=== PATIENT | female | born 1975 | race Caucasian/White ===

== ENCOUNTER 2021-12-26 10:48 | Inpatient (IN) | payer BC ==
[~2021-12-26] VITALS: Ht 167.6 cm; Wt 61.2 kg
[2021-12-26 11:45] LABS: HEMOGLOBIN 12.8 gm/dl (12.3-15.3); RED BLOOD COUNT 4.63 M/UL (4.00-5.10); WHITE BLOOD COUNT 6.3 K/UL (4.5-11.0)
[2021-12-26 12:14] LABS: BUN/CREATININE RATIO 14 (0-10)
[2021-12-26] MEDS ORDERED: IBUPROFEN400 MG PO (15:34)
--- NOTE | 2021-12-26 18:21 | NUR ---
STEPH NOTIFIED OF PT HAVING SENSATION IN THROAT OF FOOD WCTM
[2021-12-27 02:47] LABS: WHITE BLOOD COUNT 5.2 K/UL (4.5-11.0)
[2021-12-27 03:21] LABS: BUN/CREATININE RATIO 14 (0-10)
[2021-12-28 03:37] LABS: HEMOGLOBIN 11.2 gm/dl (12.3-15.3); RED BLOOD COUNT 4.09 M/UL (4.00-5.10); WHITE BLOOD COUNT 5.3 K/UL (4.5-11.0)
[2021-12-28 04:11] LABS: BUN/CREATININE RATIO 20 (0-10)
[2021-12-29 03:16] LABS: HEMOGLOBIN 10.9 gm/dl (12.3-15.3); RED BLOOD COUNT 3.96 M/UL (4.00-5.10); WHITE BLOOD COUNT 4.5 K/UL (4.5-11.0)
[2021-12-29 03:41] LABS: BUN/CREATININE RATIO 20 (0-10)
--- NOTE | 2021-12-29 05:00 | NUR ---
Notified Dr. Choe and told him that straight cathing the patient was unsuccessful, that only 150-200mL of urine was drained from the bladder. Bladder scanner showed 900mL of urine and patient stated that she had no urge to void. I told him that two different RNs attempted to cath patient while I was in the room and they both got urine, but only a small amount. I expressed my concern that her bladder may be obstructed due to her pancreatic mass because she was voiding fine at the beginning of the shift. Dr. Choe stated "anchor a Ku cath" but I told him that the issue wasn't the catheter kit we were using because we were getting urine, but we were unable to drain her bladder completely. I also expressed to Dr. Choe that we instructed the patient to get up and try to void on her own, but she only voided 50mL. Dr. Choe stated "we will let day shift deal with it."
--- NOTE | 2021-12-29 05:39 | NUR ---
Turned patient's IV fluids off due to her not being able to void.
[2021-12-29 10:12] LABS: CANCER ANTIGEN (CA) 125 96.9 U/mL (0.0-38.1); CEA 0.5 ng/mL (0.0-4.7)
[2021-12-30] MEDS ORDERED: PHENERGAN 25 MG25 M1 PO (12:04)
[2021-12-30] MEDS ORDERED: MIRALAX17 GM PO (12:04)
[2021-12-30] MEDS ORDERED: HYDROCODON-ACE1 EAC6 PO (12:04)
[2021-12-30] MEDS ORDERED: ZOFRAN ODT 4 MG4 MG SL (12:04)
[2021-12-30] MEDS ORDERED: PROTONIX 40 MG40 M1 PO (12:04)
[2021-12-30] MEDS ORDERED: SENOKOT-S TABL1 EACH PO (12:04)
[2021-12-30] MEDS ORDERED: THERAGRAN M TAB1 EA PO (12:04)
== END 2021-12-30 17:50 | disposition home or self-care (01) | DRG 840 ==
LOC: ER1 10:48 → CDU 14:35 → M/S 14:35
PROVIDERS: Internal Medicine Infectious Disease; Physician Assistant; Registered Nurse; ADMIT Internal Medicine
PROC: 0WBH3ZX Excision of Retroperitoneum, Percutaneous Approach, Diagnostic (ICD-10-PCS; principal; 2021-12-27)
DX: C85.80 Other specified types of non-Hodgkin lymphoma, unspecified site (principal); K85.90 Acute pancreatitis without necrosis or infection, unspecified; R63.4 Abnormal weight loss; M54.9 Dorsalgia, unspecified; R14.0 Abdominal distension (gaseous); K59.00 Constipation, unspecified; K21.00 Gastro-esophageal reflux disease with esophagitis, without bleeding; E87.6 Hypokalemia; Z79.899 Other long term (current) drug therapy; Z98.890 Other specified postprocedural states; Z88.0 Allergy status to penicillin; Z68.21 Body mass index [BMI] 21.0-21.9, adult
CPT/HCPCS: 36415; 76942; 80053; 81001; 82378; 83690; 83735; 84703; 85025; 86304; 96374; 99285; C9113; J1885; J2270; J2405; J2550; J3480; J7030; Q9967; U0002

== ENCOUNTER 2022-01-01 15:12 | Emergency (ER) | payer BC ==
[~2022-01-01 15:12] MED LIST: HYDROCODON-ACE1 EAC6 PO; IBUPROFEN400 MG PO; MIRALAX17 GM PO; PHENERGAN 25 MG25 M1 PO; PROTONIX 40 MG40 M1 PO; SENOKOT-S TABL1 EACH PO; THERAGRAN M TAB1 EA PO; ZOFRAN ODT 4 MG4 MG SL
[2022-01-01 18:34] LABS: BUN/CREATININE RATIO 19 (0-10)
[2022-01-01 19:51] LABS: HEMOGLOBIN 12.5 gm/dl (12.3-15.3); RED BLOOD COUNT 4.57 M/UL (4.00-5.10); WHITE BLOOD COUNT 4.9 K/UL (4.5-11.0)
== END 2022-01-02 00:35 | disposition short-term general hospital (02) ==
LOC: ER1 15:12
PROVIDERS: Physician Assistant
DX: R19.00 Intra-abdominal and pelvic swelling, mass and lump, unspecified site (principal); K56.609 Unspecified intestinal obstruction, unspecified as to partial versus complete obstruction; I82.890 Acute embolism and thrombosis of other specified veins; K55.059 Acute (reversible) ischemia of intestine, part and extent unspecified; Z88.0 Allergy status to penicillin; Z85.72 Personal history of non-Hodgkin lymphomas
CPT/HCPCS: 80053; 81001; 83605; 83690; 85025; 93005; 96374; 96375; 99285; J2270; J2405; Q9967

== ENCOUNTER → 2022-01-21 | Outpatient (CLI) | payer BC ==
[2022-01-21 08:11] LABS: HEMOGLOBIN 9.3 gm/dl (12.3-15.3); RED BLOOD COUNT 3.49 M/UL (4.00-5.10); WHITE BLOOD COUNT 1.7 K/UL (4.5-11.0)
[2022-01-21 08:40] LABS: BUN/CREATININE RATIO 8 (0-10)
== END ==
LOC: OPSV 07:00
PROVIDERS: Internal Medicine
DX: C83.30 Diffuse large B-cell lymphoma, unspecified site (principal)
CPT/HCPCS: 80053; 85025

== ENCOUNTER → 2022-01-24 | Outpatient (CLI) | payer BC | LOC: MRI 09:30 | DX: C85.10 Unspecified B-cell lymphoma, unspecified site (principal) | CPT/HCPCS: 70553; A9577 ==

== ENCOUNTER → 2022-01-25 | Outpatient (CLI) | payer BC ==
[2022-01-25 09:25] LABS: BUN/CREATININE RATIO 8 (0-10)
[2022-01-25 09:37] LABS: RED BLOOD COUNT 3.75 M/UL (4.00-5.10); WHITE BLOOD COUNT 6.6 K/UL (4.5-11.0)
== END ==
LOC: OPSV 07:00
PROVIDERS: Internal Medicine
DX: C83.30 Diffuse large B-cell lymphoma, unspecified site (principal)
CPT/HCPCS: 80053; 85025

== ENCOUNTER 2022-01-30 11:34 | Emergency (ER) | payer BC ==
[2022-01-30 13:32] LABS: RED BLOOD COUNT 3.42 M/UL (4.00-5.10); WHITE BLOOD COUNT 7.5 K/UL (4.5-11.0)
[2022-01-30 13:53] LABS: BUN/CREATININE RATIO 18 (0-10)
== END 2022-01-30 14:44 | disposition home or self-care (01) ==
LOC: ER1 11:34
PROVIDERS: Physician Assistant
DX: R04.0 Epistaxis (principal); Z88.0 Allergy status to penicillin
CPT/HCPCS: 80048; 85025; 85610; 99283

== ENCOUNTER → 2022-02-01 | Outpatient (CLI) | payer BC ==
[2022-02-01 08:44] LABS: HEMOGLOBIN 9.3 gm/dl (12.3-15.3); RED BLOOD COUNT 3.52 M/UL (4.00-5.10)
[2022-02-01 08:49] LABS: WHITE BLOOD COUNT 4.2 K/UL (4.5-11.0)
[2022-02-01 09:08] LABS: BUN/CREATININE RATIO 30 (0-10)
== END ==
LOC: OPSV 07:00
PROVIDERS: Internal Medicine
DX: C85.10 Unspecified B-cell lymphoma, unspecified site (principal)
CPT/HCPCS: 80053; 85025

== ENCOUNTER → 2022-02-04 | Outpatient (CLI) | payer BC ==
[2022-02-04 09:08] LABS: RED BLOOD COUNT 3.48 M/UL (4.00-5.10); WHITE BLOOD COUNT 6.3 K/UL (4.5-11.0)
[2022-02-04 09:28] LABS: BUN/CREATININE RATIO 19 (0-10)
== END ==
LOC: OPSV 07:00
PROVIDERS: Internal Medicine
DX: C83.30 Diffuse large B-cell lymphoma, unspecified site (principal)
CPT/HCPCS: 80053; 85025

== ENCOUNTER → 2022-02-08 | Outpatient (CLI) | payer BC ==
[2022-02-08 09:04] LABS: HEMOGLOBIN 8.2 gm/dl (12.3-15.3); RED BLOOD COUNT 3.15 M/UL (4.00-5.10)
[2022-02-08 09:11] LABS: WHITE BLOOD COUNT 0.8 K/UL (4.5-11.0)
[2022-02-08 09:22] LABS: BUN/CREATININE RATIO 15 (0-10)
== END ==
LOC: OPSV 07:00
PROVIDERS: Internal Medicine
DX: C85.10 Unspecified B-cell lymphoma, unspecified site (principal)
CPT/HCPCS: 80053; 85025

== ENCOUNTER → 2022-02-11 | Outpatient (CLI) | payer BC ==
[2022-02-11 08:25] LABS: HEMOGLOBIN 8.9 gm/dl (12.3-15.3); RED BLOOD COUNT 3.46 M/UL (4.00-5.10)
[2022-02-11 08:26] LABS: WHITE BLOOD COUNT 1.9 K/UL (4.5-11.0)
[2022-02-11 08:50] LABS: BUN/CREATININE RATIO 18 (0-10)
== END ==
LOC: OPSV 07:00
PROVIDERS: Internal Medicine
DX: C83.30 Diffuse large B-cell lymphoma, unspecified site (principal)
CPT/HCPCS: 36415; 80053; 85025

== ENCOUNTER → 2022-02-15 | Outpatient (CLI) | payer BC ==
[~2022-02-15] VITALS: Ht 167.6 cm; Wt 59.0 kg
[2022-02-15 08:51] LABS: HEMOGLOBIN 8.9 gm/dl (12.3-15.3); RED BLOOD COUNT 3.48 M/UL (4.00-5.10); WHITE BLOOD COUNT 6.1 K/UL (4.5-11.0)
[2022-02-15 09:24] LABS: BUN/CREATININE RATIO 20 (0-10)
== END ==
LOC: OPSV 07:00
PROVIDERS: Internal Medicine
DX: C85.10 Unspecified B-cell lymphoma, unspecified site (principal)
CPT/HCPCS: 80053; 85025; 96375; J1642; J2997

== ENCOUNTER → 2022-03-01 | Outpatient (CLI) | payer BC ==
[2022-03-01 09:16] LABS: HEMOGLOBIN 8.6 gm/dl (12.3-15.3); RED BLOOD COUNT 3.36 M/UL (4.00-5.10)
[2022-03-01 09:34] LABS: WHITE BLOOD COUNT 0.7 K/UL (4.5-11.0)
[2022-03-01 09:35] LABS: BUN/CREATININE RATIO 21 (0-10)
== END ==
LOC: OPSV 07:00
PROVIDERS: Internal Medicine
DX: C83.30 Diffuse large B-cell lymphoma, unspecified site (principal)
CPT/HCPCS: 80053; 85025

== ENCOUNTER → 2022-03-07 | Outpatient (CLI) | payer BC ==
[2022-03-07 08:40] LABS: HEMOGLOBIN 9.2 gm/dl (12.3-15.3); RED BLOOD COUNT 3.55 M/UL (4.00-5.10)
[2022-03-07 08:45] LABS: WHITE BLOOD COUNT 1.3 K/UL (4.5-11.0)
[2022-03-07 09:00] LABS: BUN/CREATININE RATIO 15 (0-10)
== END ==
LOC: OPSV 08:00
PROVIDERS: Internal Medicine
DX: C83.30 Diffuse large B-cell lymphoma, unspecified site (principal)
CPT/HCPCS: 80053; 85025

== ENCOUNTER → 2022-03-18 | Outpatient (CLI) | payer BC ==
[~2022-03-18] VITALS: Ht 167.6 cm; Wt 59.0 kg
== END ==
LOC: OPSV 08:00
DX: C83.30 Diffuse large B-cell lymphoma, unspecified site (principal)
CPT/HCPCS: 96374; J1642

== ENCOUNTER → 2022-03-22 | Outpatient (CLI) | payer BC ==
[~2022-03-22] VITALS: Ht 167.6 cm; Wt 59.0 kg
== END ==
LOC: OPSV 15:00
DX: Z45.2 Encounter for adjustment and management of vascular access device (principal); C85.10 Unspecified B-cell lymphoma, unspecified site
CPT/HCPCS: 96375; J1642

== ENCOUNTER → 2022-03-29 | Outpatient (CLI) | payer BC ==
[~2022-03-29] VITALS: Ht 167.6 cm; Wt 59.0 kg
== END ==
LOC: OPSV 09:00
DX: C85.10 Unspecified B-cell lymphoma, unspecified site (principal)
CPT/HCPCS: 96374; J1642

== ENCOUNTER → 2022-04-05 | Outpatient (CLI) | payer BC ==
[~2022-04-05] VITALS: Ht 167.6 cm; Wt 59.0 kg
== END ==
LOC: OPSV 08:48
DX: C83.30 Diffuse large B-cell lymphoma, unspecified site (principal)
CPT/HCPCS: G0463

== ENCOUNTER → 2022-04-12 | Outpatient (CLI) | payer BC | LOC: OPSV 08:52 | DX: C85.10 Unspecified B-cell lymphoma, unspecified site (principal) | CPT/HCPCS: G0463 ==

== ENCOUNTER → 2022-04-19 | Outpatient (CLI) | payer BC ==
[~2022-04-19] VITALS: Ht 167.6 cm; Wt 59.0 kg
== END ==
LOC: OPSV 08:00
DX: C85.10 Unspecified B-cell lymphoma, unspecified site (principal)
CPT/HCPCS: G0463; J1642

== ENCOUNTER → 2022-04-26 | Outpatient (CLI) | payer BC ==
[2022-04-26 09:25] LABS: BUN/CREATININE RATIO 39 (0-10)
== END ==
LOC: OPSV 07:58
PROVIDERS: Internal Medicine
DX: C85.10 Unspecified B-cell lymphoma, unspecified site (principal)
CPT/HCPCS: 80048

== ENCOUNTER → 2022-05-05 | Outpatient (CLI) | payer BC ==
[2022-05-05 09:38] LABS: BUN/CREATININE RATIO 20 (0-10)
== END ==
LOC: OPSV 05-03 08:00
PROVIDERS: Internal Medicine
DX: C85.10 Unspecified B-cell lymphoma, unspecified site (principal)
CPT/HCPCS: 80048

== ENCOUNTER → 2022-05-17 | Outpatient (CLI) | payer BC ==
[2022-05-17 09:07] LABS: BUN/CREATININE RATIO 20 (0-10)
== END ==
LOC: OPSV 07:58
PROVIDERS: Internal Medicine
DX: C85.10 Unspecified B-cell lymphoma, unspecified site (principal)
CPT/HCPCS: 80048

== ENCOUNTER → 2022-05-24 | Outpatient (CLI) | payer BC ==
[2022-05-24 10:24] LABS: BUN/CREATININE RATIO 20 (0-10)
== END ==
LOC: OPSV 08:58
PROVIDERS: Internal Medicine
DX: C83.30 Diffuse large B-cell lymphoma, unspecified site (principal)
CPT/HCPCS: 80048

== ENCOUNTER → 2022-05-31 | Outpatient (CLI) | payer BC ==
[2022-05-31 09:05] LABS: BUN/CREATININE RATIO 25 (0-10)
== END ==
LOC: OPSV 08:06
PROVIDERS: Internal Medicine
DX: C85.10 Unspecified B-cell lymphoma, unspecified site (principal)
CPT/HCPCS: 80048

== ENCOUNTER → 2022-06-08 | Outpatient (CLI) | payer BC ==
[2022-06-08 09:28] LABS: BUN/CREATININE RATIO 16 (0-10)
== END ==
LOC: OPSV 08:06
PROVIDERS: Internal Medicine
DX: C85.10 Unspecified B-cell lymphoma, unspecified site (principal)
CPT/HCPCS: 80048

== ENCOUNTER → 2022-06-14 | Outpatient (CLI) | payer BC ==
[2022-06-14 08:52] LABS: BUN/CREATININE RATIO 28 (0-10)
== END | disposition home or self-care (01) ==
LOC: OPSV 07:54
PROVIDERS: Internal Medicine
DX: C83.30 Diffuse large B-cell lymphoma, unspecified site (principal)
CPT/HCPCS: 80048